=== PATIENT | male | born 1975 | race Caucasian/White ===

== ENCOUNTER 2016-10-10 20:40 | Emergency (ER) | payer MEDICARE, MEDICAID ==
[2016-10-10 21:00] VITALS: BP 124/85
[2016-10-10] MEDS ORDERED: Ibuprofen TAB* 400 MG PO ONE (21:24)
--- NOTE | 2016-10-10 21:49 | UC ---
Lower Extremity/Ankle HPI - HPI Summary HPI Summary: The patient comes in today for: 1. Left ankle pain: Onset: One hour ago. Palliative/provocative: Weight bearing makes it worse. Quality: Throbbing. Region: Left ankle, medial Severity: 7/10 Time: Constant Associated symptoms: Event: While coming down the steps, his toe got caught, and "all my weight came down on my ankle while it was turned in." No previous injury to the left ankle. 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 Endocrine History Of: Denies: Diabetes, Thyroid Disease, Hyperthyroidism, Hypothyroidism, Dyslipidemia Cardiovascular History Of: Reports: Hypertension - He does not have it now after his gastric bypass (October of 2016) Denies: Cardiac Disorders, Pacemaker/ICD, Myocardial Infarction, Congestive Heart Failure, Atrial Fibrillation, Deep Vein Thrombosis, Bleeding Disorders Respiratory History Of: Denies: COPD, Asthma, Bronchitis, Pneumonia, Pulmonary Embolism GI/ History Of: Denies: Gastroesophageal Reflux, Ulcer, Gastrointestinal Bleed, Gall Bladder Disease, Kidney Stones, Diverticulitis, Renal Disease, Urosepsis Neurological History Of: Denies: TIA, CVA, Dementia, Seizures, Migraine Psychological History Of: Denies: Anxiety, Depression, Bipolar Disorder, Schizophrenia, Post Traumatic Stress Disorder Cancer History Of: Denies: Lung Cancer, Colorectal Cancer, Breast Cancer, Prostate Cancer, Cervical Cancer Other History Of: Negative For: HIV, Hepatitis B, Hepatitis C, Anticoagulant Therapy - Surgical History Surgical History: Yes Surgery Procedure, Year, and Place: CHOLECYSTECTOMY, GASTRIC BYPASS, HERNIA - Family History Known Family History: Positive: Cardiac Disease Negative: Hypertension - Social History Occupation: Unemployed Alcohol Use: None Substance Use Type: Prescribed, Other Substance Use Comment - Amount & Last Used: 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 Smoking Status (MU): Former Smoker Type: Cigarettes Length of Time of Smoking/Using Tobacco: 20 yrs Have You Smoked in the Last Year: No When Did the Patient Quit Smoking/Using Tobacco: 2011 Review of Systems Constitutional: Negative Skin: Negative Eyes: Negative ENT: Negative Respiratory: Negative Cardiovascular: Negative Gastrointestinal: Negative Genitourinary: Negative Musculoskeletal: Arthralgia All Other Systems Reviewed And Are Negative: Yes Physical Exam Triage Information Reviewed: Yes Appearance: Well-Appearing, No Pain Distress - while, Well-Nourished Vital Signs: Initial Vital Signs Temp 99.4 F 10/10/16 20:52 Pulse 102 10/10/16 20:52 Resp 16 10/10/16 20:52 BP 124/85 10/10/16 20:52 Pulse Ox 97 10/10/16 20:52 Vital Signs Reviewed: Yes Eyes: Positive: Conjunctiva Clear. Negative: Discharge ENT: Positive: Hearing grossly normal. Negative: Pharyngeal erythema, Nasal congestion, Nasal drainage, TM bulging, TM dull, TM red, Tonsillar swelling, Tonsillar exudate Dental: Negative: Gross Decay/Caries @, Dental Fracture @ Neck: Positive: Supple, Nontender, No Lymphadenopathy. Negative: Nuchal Rigidity Respiratory: Positive: Chest non-tender, Lungs clear, No respiratory distress, No accessory muscle use. Negative: Crackles, Rhonchi Cardiovascular: Positive: RRR, No Murmur Abdomen Description: Positive: Nontender, No Organomegaly, Soft. Negative: Distended, Guarding Musculoskeletal: Positive: Strength Intact, Edema @, Other: - Left lower leg: color is good. He states that he has pre-existing peripheral neuropathy in that foot, but the sensation is not worse. He has "poor pulses" in that foot to begin with by his report. However his dorsalis pulse was 1+/2. Neurological: Positive: Alert, Muscle Tone Normal Psychological: Positive: Age Appropriate Behavior, Consolable Skin: Negative: rashes, breakdown Diagnostics - Radiology No standard instances Xray Interpretation: Positive (See Comments) - IMPRESSION: MINIMALLY DISPLACED FRACTURE OF THE TIBIAL MALLEOLUS WITH LIKELY NONDISPLACED FRACTURE INVOLVING THE FIBULAR MALLEOLUS. Radiology Interpretation Completed By: Radiologist Lower Extremity Course/Dx - Course Course Of Treatment: Patient was told that I recommended a posterior spling with possibly a stirrup splint for added stability. However, the patient flatly refused to accept a splint. He stated to me that he would only accept a boot. However, the nurses stated that he even gave them a hard time about wearing it. He promised to not bear any weight on it. - Differential Dx/Diagnosis Differential Diagnosis/HQI/PQRI: Fracture (Closed) Provider Diagnoses: MINIMALLY DISPLACED FRACTURE OF THE LEFT TIBIAL MALLEOLUS WITH LIKELY NONDISPLACED. FRACTURE INVOLVING THE LEFT FIBULAR MALLEOLUS. Discharge - Discharge Plan Condition: Stable Disposition: HOME Prescriptions: Ibuprofen TAB* [Motrin TAB* 800 MG] 0.5 - 1 tab PO Q6H PRN #60 tab PRN Reason: pain. Patient Education Materials: Ankle Fracture (ED) Referrals: Jose Angel Garrido MD [Primary Care Provider] - Tomasz Mason MD [Medical Doctor] - Additional Instructions: Do not bear any weight on the ankle. Keep it elevated tonight. Apply ice on the ankle for 20 minutes on and 20 minutes off. See the orthopedic surgeon tomorrow.
--- NOTE | 2016-10-10 22:07 | RAD ---
INDICATION: Ankle pain after a fall down the stairs COMPARISON: None. TECHNIQUE: 3 views of the left ankle were obtained. FINDINGS: There is a displaced fracture involving the tibial malleolus depicted best on the AP and oblique views. There is faint cortical discontinuity at the posterior lateral aspect of the fibular malleolus. The remaining visualized bones are intact and appropriately aligned. IMPRESSION: MINIMALLY DISPLACED FRACTURE OF THE TIBIAL MALLEOLUS WITH LIKELY NONDISPLACED FRACTURE INVOLVING THE FIBULAR MALLEOLUS.
== END 2016-10-10 22:24 | disposition home or self-care (01) ==
LOC: UCCORT 20:40
DX: S82.52XA Displaced fracture of medial malleolus of left tibia, initial encounter for closed fracture (principal); W10.9XXA Fall (on) (from) unspecified stairs and steps, initial encounter; Y93.9 Activity, unspecified; Y92.9 Unspecified place or not applicable; Z88.0 Allergy status to penicillin; Z98.84 Bariatric surgery status; Z90.49 Acquired absence of other specified parts of digestive tract; Z87.891 Personal history of nicotine dependence
CPT/HCPCS: 99213; A9270-GY; G0463

== ENCOUNTER 2016-10-12 11:13 | Day surgery (SDC) | payer MEDICARE, MEDICAID ==
[~2016-10-12 11:13] MED LIST: Clindamycin 900 MG IVPREMIX(* 900 MG/50 ML SDV IV ONE; Dexamethasone IV* 4 MG/ML 1 ML (4 MG) IV SLOW PU ONE; Dexamethasone IV* 4 MG/ML 1 ML (4 MG) ONE; Famotidine IV* 10 MG/ML 2 ML (20 mg) IV ONE; Famotidine IV* 10 MG/ML 2 ML (20 mg) ONE
[2016-10-12] MEDS ORDERED: Bupivacaine 0.5% SDV PF* 30 ML VIAL ONE (12:26)
[2016-10-12] MEDS ORDERED: KETAMINE HCL* 50 MG/ML 10 ML VIAL ONE (13:01)
[2016-10-12] MEDS ORDERED: Midazolam* 1 MG/ML 2 ML VIAL (2 MG) ONE (13:02)
[2016-10-12] MEDS ORDERED: Lidocaine 1% INJ* 10 MG/ML 30 ML SDV ONE (13:03)
[2016-10-12] MEDS ORDERED: DiMENhydriNATE IV* 50 MG/ML VIAL IV PUSH PRN (13:58)
[2016-10-12] MEDS ORDERED: fentaNYL* 50 MCG/ML 2 ML VIAL (100 MCG VIAL) ONE ×3 (14:13→15:59)
[2016-10-12] MEDS ORDERED: Metoclopramide IV* 5 MG/ML 2 ML VIAL ONE (14:13)
[2016-10-12] MEDS ORDERED: Ketorolac INJ* 30 MG/ML 1 ML VIAL ONE (14:13)
[2016-10-12] MEDS ORDERED: Propofol* 10 MG/ML 20 ML BTL IV PUSH ONE (14:13)
[2016-10-12] MEDS ORDERED: HYDROmorphone* 1 MG/ML 1 ML SYR ONE (15:13)
[2016-10-12] MEDS: fentaNYL* 50 MCG/ML 2 ML VIAL (100 MCG VIAL) IV PRN ×4 (15:14→16:06)
[2016-10-12] MEDS: HYDROmorphone* 1 MG/ML 1 ML SYR IV PRN ×2 (15:15→15:32)
[2016-10-12] MEDS ORDERED: oxyCODONE TAB* 5 MG TAB ONE (15:16)
[2016-10-12 16:31] VITALS: BP 120/87
--- NOTE | 2016-10-12 19:32 | RAD ---
CPT II Codes: 6045F INDICATION: Ankle fracture TECHNIQUE: Intraoperative fluoroscopy was provided during plate and screw fixation of left ankle fracture.. FINDINGS: 2 spot films depict 2 screws spanning the tibial malleolus in the oblique direction and partial visualization of a plate and screw fixator overlying the distal fibula. Fluoroscopy time: 14 seconds IMPRESSION: As above.
--- NOTE | 2016-10-13 02:13 | OP ---
OPERATIVE REPORT: DATE OF OPERATION: 10/12/16 - SDS DATE OF : 77 SURGEON: Elfego Killian MD OPERATOR COATING FURNACE: Damari Isaac PA-C ANESTHESIOLOGIST: Angelito Malin MD ANESTHESIA: General. PRE-OP DIAGNOSIS: Left bimalleolar ankle fracture. POST-OP DIAGNOSIS: Left bimalleolar ankle fracture. OPERATIVE PROCEDURE: Open reduction and internal fixation of left bimalleolar ankle fracture. DESCRIPTION OF PROCEDURE: The patient was taken to the operating room, where a thigh high tourniquet was applied. We made a lateral longitudinal incision over the fibula. The fibular incision was basically non-, but it was displaced in the slight valgus. To correct this, we replaced a one-third tubular plate laterally slightly under bent to push the fibular fragment back into place. This was accomplished by placing the middle screw and then a distal proximal screw. This area was then irrigated and closed with Vicryl and vinh for the skin. We then opened up medially and where the medial malleolus and located the displaced axial oriented medial malleolar fragment. This was reduced with a pointed reduction clamp and then fixed with paired 4.0 cancellous screws partially threaded with washers. Good fixation and alignment was obtained and verified with C-arm. I then irrigated the medial wound closing this with Vicryl, vinh, and a compression dressing and plaster splint applied. We put in 18 cc of half-strength Marcaine at the end of the case. [id number]/CPS #: [id number] MTDD
== END 2016-10-12 16:56 | disposition home or self-care (01) ==
LOC: OR 11:13
PROVIDERS: ATTEND Orthopaedic Surgery
DX: S82.842A Displaced bimalleolar fracture of left lower leg, initial encounter for closed fracture (principal); Z68.32 Body mass index [BMI] 32.0-32.9, adult; Z87.891 Personal history of nicotine dependence; K21.9 Gastro-esophageal reflux disease without esophagitis; W10.9XXA Fall (on) (from) unspecified stairs and steps, initial encounter; Y92.9 Unspecified place or not applicable
CPT/HCPCS: 76000; A9270-GY; C1713; C1776; J1100; J1170; J1885; J2001; J2250; J2704; J3010